=== PATIENT | female | born 1950 | race Caucasian/White ===

== ENCOUNTER 2020-08-18 13:13 | Outpatient (REF) | payer MEDICARE, OTHER, SELFPAY ==
[2020-08-18 15:30] LABS: Alanine Aminotransferase 17 U/L (0-31); Albumin Level 4.3 g/dL (3.5-5.0); Alkaline Phosphatase 61 U/L (39-117); Anion Gap 15 (12-20); Aspartate Amino Transferase 18 U/L (5-31); Bilirubin Total 1.4 mg/dL (0.0-1.0); Blood Urea Nitrogen 21 mg/dL (9-16); C Reactive Protein 0.55 mg/dL (< or = 0.50); Calcium 9.7 mg/dL (8.4-10.2); Carbon Dioxide 24 mmol/L (22-29); Chloride 107 mmol/L (96-108); Estimated Glomerular Filt Rate > 60; Glucose Random 104 mg/dL (60-115); Potassium 4.7 mmol/L (3.3-5.1); Sodium 141 mmol/L (135-145); Total Protein 6.9 g/dL (6.5-8.0)
[2020-08-18 16:09] LABS: Erythrocyte Sedimentation Rate 14 MM/HR (0-20)
== END 2020-08-18 13:14 | disposition home or self-care (01) ==
LOC: HO.LAB 13:13
PROVIDERS: PCP Physician Assistant; Visit Provider Student in an Organized Health Care Education/Training Program
DX: M54.5 Low back pain (principal); M25.50 Pain in unspecified joint; Z79.899 Other long term (current) drug therapy; G89.29 Other chronic pain
CPT/HCPCS: 36415; 80053; 85652; 86140; 99212

== ENCOUNTER 2025-01-11 14:47 | Outpatient (AMB) | payer MEDICARE, OTHER, SELFPAY ==
--- NOTE | 2025-01-11 14:59 | MHC.OFFVIS ---
Intake Visit Reasons: PD Allergies dogs Allergy (Intermediate, Uncoded 08/18/20 13:27) Sneezing grass Allergy (Intermediate, Uncoded 08/18/20 13:27) Sneezing Medication List - Last Reconciled 01/11/25 by Niall Xie MD acetaminophen ER 1,300 mg PO Q12H atenolol 50 mg PO BID biotin 5 mg PO .twice a day carbidopa-levodopa 25-100 mg tabs PO famotidine 20 mg PO BEDTIME fosfomycin tromethamine 1 packet PO QWEEK ketoconazole 2% 1 appl topical DAILY PRN lisinopril 10 mg PO DAILY mometasone 0.1% 1 appl topical DAILY PRN nystatin 1 appl topical DAILY PRN oxybutynin chloride 5 mg PO BID pantoprazole 40 mg PO DAILY rivaroxaban (Xarelto) 20 mg PO DAILY HPI Comments Details: 74 years old woman with hypertension and atrial fibrillation who was initially seen for tremor right hand and was diagnosed with Parkinson disease. She was dozing off during daytime and then not able to sleep at night. She could not tolerate two carbidopa/levodopa and was taking one tid. [facility] Medical History (Updated 01/11/25 @ 15:06 by Niall Xie MD) Hypertension Multifactorial gait disorder Low back pain Social History (Updated 08/18/20 @ 13:34 by Matt Fabian LPN) Alcohol intake: never Review of Systems Const Details: Constitutional:?No fever, chills, fatigue, weight loss, or night sweats. HEENT:?No headache, vision changes, hearing loss, nasal congestion, sore throat. Neurological:?No dizziness, syncope, seizures, numbness, tingling, weakness, tremors, memory loss. Psychiatric:?No anxiety, depression, mood swings, sleep disturbance, or hallucinations. Endocrine:?No heat/cold intolerance, polydipsia, polyuria, or hair/skin changes. Hematologic/Lymphatic:?No easy bruising, bleeding, or lymphadenopathy. Integumentary (Skin):?No rash, lesions, itching, or color changes. ? Physical Exam Neuro Other: Mental Status: Alert and oriented to person, place, and time. Normal attention. Normal spontaneous speech, fluency, and comprehension. No obvious issues with mood and memory. Affect is appropriate. Cranial Nerves: CN II: Visual fuentes full to confrontation, visual acuity intact. CN III, IV, : Pupils equal, round, reactive to light and accommodation. Extraocular movements are normal. CN V: Facial sensation is normal. CN VII: Facial movements symmetrical. CN VIII: Hearing intact to bedside conversation is normal. CN IX, X: Palate elevates symmetrically. CN XI: Shoulder shrug and head turn symmetrical. CN XII: Tongue midline without atrophy or fasciculations. Motor: Bulk and tone normal in all extremities. No significant muscle weakness in arms and legs. No drift. Reflexes: Deep tendon reflexes 2+ and symmetric. Plantar response down-going bilaterally. Coordination: Noqcip-tl-mutw and azax-qu-dbmu testing normal. No dysmetria. Gait and Station: No obvious gait abnormality. No ataxia or instability. Extrapyramidal: Full facial expressions and blinking. No rigidity. Movements are appropriate with no tremor or abnormality. Speech: Normal; no dysarthria or tremor. Assessment & Plan Assessment & Plan (1) Parkinson disease: Comment: MRI brain WO at [facility] in Apr 2024: mild diff atrophy, mild MVD. Code(s): G20.A1 - Parkinson's disease without dyskinesia, without mention of fluctuations Category: Medical Qualifiers: Dyskinesia presence: without dyskinesia Fluctuating manifestations: with fluctuating manifestations Qualified Code(s): G20.A2 - Parkinson's disease without dyskinesia, with fluctuations Plan Impression: a: Parkinson disease b: Insomnia Rec: a: Carbidopa/levodopa 25/100 at 7am,11am,3pm b: Expose yourself to bright light in morning hours c: Take scheduled brief afternoon nap Medications: New carbidopa-levodopa 25-100 mg 1 tab PO TID 270 tabs 1RF Coding Level of Care Code Est Pt Level 4 (73776) Diagnoses Parkinson's disease without dyskinesia, with fluctuating manifestations G20.A2 Dyskinesia presence: without dyskinesia Fluctuating manifestations: with fluctuating manifestations
--- OUTSIDE RECORDS SUMMARY | 2025-01-11 15:34 | XMS_ITS | Clinical Summary ---
Author Organization [facility] Address [address] [place], [place] [id number] Phone Care Team Providers Care Wet Finisher Name Role Phone Matthew Yeh MD Primary Care Provider [phone] Allergies No known active allergies Medications aspirin-calcium carbonate 81 mg-300 mg calcium(777 mg) Tab Dose: 81 MG; Form: Take 1 TABLET; Route: PO; Frequency: QD; Directions: Not available; Details: Dispense: Tablet(s); Date: 01/24/2015 01/24/2015 Active atenolol (TENORMIN) 100 MG tablet Dose: Not available; Form: Not available; Route: PO; Frequency: Not available; Directions: Not available; Details: Dispense: Tablet(s); Date: 01/24/2015 01/24/2015 Active biotin 10 mg Tab Dose: 10 MG; Form: Take 1 TABLET; Route: PO; Frequency: QD; Directions: Not available; Details: Dispense: 30 Tablet(s); Date: 01/01/2014 01/01/2014 Active dilTIAZem (CARDIZEM) 120 MG immediate release tablet Dose: Not available; Form: Not available; Route: PO; Frequency: Not available; Directions: As directed; Details: Dispense: Tablet(s); Date: 12/08/2012 12/08/2012 Active GLUC CAMARGO/CHONDRO CAMARGO A/VIT C/MN (GLUCOSAMINE 1500 COMPLEX ORAL) Dose: Not available; Form: Not available; Route: PO; Frequency: Not available; Directions: As directed; Details: Dispense: 30 Tablet(s); Date: 12/08/2012 12/08/2012 Active lisinopril (PRINIVIL,ZESTR IL) 10 MG tablet Dose: 10 MG; Form: Take 1 TABLET; Route: PO; Frequency: QD; Directions: Not available; Details: Dispense: Tablet(s); Date: 08/13/2014 08/13/2014 Active omega-3 fatty acids 1,000 mg Cap Dose: Not available; Form: Not available; Route: PO; Frequency: Not available; Directions: As directed; Details: Not available; Date: 12/08/2012 12/08/2012 Active omeprazole (PRILOSEC) 20 mg TbEC Dose: 20 MG; Form: Take [address]; Route: PO; Frequency: QD; Directions: Not available; Details: Dispense: Tablet(s); Date: 03/27/2013 03/27/2013 Active pantoprazole (PROTONIX) 40 MG tablet Dose: 40 MG; Form: Take [address]; Route: PO; Frequency: QD; Directions: Not available; Details: Dispense: 30 Tablet(s); Date: 01/01/2014 01/01/2014 Active ergocalciferol 400 unit tablet Dose: Not available; Form: Not available; Route: PO; Frequency: Not available; Directions: As directed; Details: Dispense: 30 Tablet(s); Date: 01/01/2014 01/01/2014 Active zolpidem (AMBIEN) 10 mg tablet Dose: 10 MG; Form: Take 1 TABLET; Route: PO; Frequency: QHS; Directions: Not available; Details: Dispense: Tablet(s); Date: 12/08/2012 12/08/2012 Active CHOLECALCIFEROL , VITAMIN D3, (CHOLECALCIFERO L, VIT D3,,BULK,) 1 million unit/gram Liqd liquid Dose: Not available; Form: Not available; Route: PO; Frequency: Not available; Directions: As directed; Details: Dispense: Tablet(s); Date: 12/08/2012 12/08/2012 Active atenolol (TENORMIN) 50 MG tablet Take 50 mg by mouth. 1 02/04/2017 Active oxybutynin (DITROPAN-XL) 5 MG 24 hr tablet Take 10 mg by mouth daily. 6 03/06/2017 Active vitamins A,C,E-zinc-brisa er (PRESERVISION AREDS) 14,320-226-200 togn-op-zwhg Cap Take 1 capsule by mouth 2 (two) times a day with meals. Active aspirin 81 MG EC tablet Take 81 mg by mouth daily. 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 Not on serenity e 10/19/2022 Are you concerned about learning? Not on file 10/19/2022 No 10/19/2022 No 10/19/2022 Digital Access Answer Date Recorded No 11/19/2022 No 11/19/2022 Reliable internet access at home? Not on file 11/19/2022 Device with a working camera? Not on file Comments Unknown Sex and Gender Information Value Date Recorded Sex Assigned at Not on file Legal Sex Female 5:51 AM EST Gender Identity Not on file Sexual Orientation Not on file Plan of Treatment Health Maintenance Due Date Last Done Comments Adult Td,Tdap Booster 1948 BLOOD PRESSURE 1948 CREATININE LEVEL 1948 LIPID PANEL 1948 POTASSIUM LEVEL 1948 DEPRESSION SCREENING 1960 HEPATITIS C SCREENING 1966 PNEUMOCOCCAL VACCINES (50+ y ears) (1 of 1 - PCV) 1998 ZOSTER VACCINES (1 of 2) 1998 OSTEOPOROSIS SCREENING INITI AL (ONE-TIME) 2013 RSV VACCINE (1 - 1-dose 75+ series) 09/24/2023 COVID-19 VACCINE (2 - 2023-2 5 season) 2024 09/08/2020 SMOKING STATUS SCREENING (On ce After 26 Yrs) Completed 02/02/2019 HEPATITIS A VACCINES Aged Out No long er eligible based on patient's age to complete this topic HIB VACCINES Aged Out No longer eligi ble based on patient's age to complete this topic MENINGOCOCCAL VACCINES (ACWY) Aged Out No longer eligible based on patient's age to complete this topic MENINGOCOCCAL VACCINES (B) Aged Out N o longer eligible based on patient's age to complete this topic Medical Devices Not on file Insurance MEDICARE PART A & B [facility] MEDICARE SUPPLEMENT Care Teams Wet Finisher Relationship Specialty Start Date End Date Matthew Yeh MD PCP - General Internal Medicine 03/18/17 Additional Source Comments The information contained in this document represents components of the legal health record. It is not the complete legal health record.[facility]
--- OUTSIDE RECORDS SUMMARY | 2025-01-11 15:34 | XMS_ITS | Encounter Summary ---
Author Organization [facility] Address [address] [place] [id number] Care Team Providers Care Joint Finisher Name Role Phone Hermelinda Mendoza Primary Care Provider + Encounter Details Date Type Department Care Team (Late Contact Info) Description 11/13/[address] [facility] - Main Lab 299 [facility] [place] [phone] Meredith Ayala PA [address] [address] Overactive bladder; Frequency of micturition Social History Tobacco Use Types Packs/Day Years Used Date Smoking Tobacco: Never Smokeless Tobacco: Never Alcohol Use Standard Drinks/Week Comments Never 0 (1 standard drink = 0.6 oz pur e alcohol) Comments Unknown Sex and Gender Information Value Date Recorded Sex Assigned at Not on file Legal Sex Female 7:49 AM EST Gender Identity Not on file Sexual Orientation Not on file Occupation Industry Job Start Date Job End Date Retired Not on file Not on file Not on file documented as of this encounter Plan of Treatment Upcoming Encounters Date Type Department Care Team (Late Contact Info) Description 04/12/2025 2:00 PM EDT Office Visit Internal Medicine - [place] 175 [facility] 200 [place] [phone] Hermelinda Mendoza PA 175 [facility] 200 [place], [place] [phone] 05/10/2025 1:30 PM EST Ancillary Procedure [facility] [address] [place] [phone] documented as of this encounter Procedures Procedure Name Priority Date/Time Associated Diagnosis Comments BACTERIAL IDENTIFICATION AND SUSCEPTIBILITY, AEROBIC Routine 11/12/2024 12:00 AM EDT Overactive bladder Frequency of micturition documented in this encounter Results * (ABNORMAL) Bacterial identification and susceptibility, aerobic (11/12/2024 12:00 AM EDT) Culture, Bacterial ID and Sensitivity Enterobacter cloacae complex(A) NORA 11/14/2024 10:15 AM EDT [facility] Comment: This is an edited result. Previous organism was Gram negative bacilli on 11/13/2024 at 1135 EDT. Other Urine specimen from urinary conduit / Unknown 11/12/2024 11/13/2024 10:38 AM EDT Narrative Organism Antibiotic Method Susceptibility Enterobacter cloacae complex Amoxicillin/Clavulanate NORA 16 ug/ml: Resistant Enterobacter cloacae complex Cefoxitin NORA >=64 ug/ml: Resistant Enterobacter cloacae complex Ceftazidime NORA <=0.5 ug/ml: Susceptible Enterobacter cloacae complex Cefepime NORA <=0.12 ug/ml: Susceptible Enterobacter cloacae complex Meropenem NORA <=0.25 ug/ml: Susceptible Enterobacter cloacae complex Amikacin NORA <=1 ug/ml: Susceptible Enterobacter cloacae complex Gentamicin NORA <=1 ug/ml: Susceptible Enterobacter cloacae complex Ciprofloxacin NORA <=0.06 ug/ml: Susceptible Enterobacter cloacae complex Levofloxacin NORA <=0.12 ug/ml: Susceptible Enterobacter cloacae complex Nitrofurantoin NORA <=16 ug/ml: Susceptible Enterobacter cloacae complex Trimethoprim/Sulfamethoxazo le NORA <=20 ug/ml: Susceptible us M[facility] MICROBIOLOGY - GENERAL ORDER SEMAJ Final Result [facility] [address] [place] [address], documented in this encounter Visit Diagnoses Diagnosis Overactive bladder Hypertonicity of bladder Frequency of micturition Urinary frequency documented in this encounter Care Teams Joint Finisher Relationship Specialty Start Date End Date Hermelinda Mendoza PA [address] [id number] PCP - General Primary Care 08/14/24 documented as of this encounter
== END 2025-01-11 15:15 | disposition home or self-care (01) ==
PROVIDERS: PCP Physician Assistant; Visit Provider Psychiatry & Neurology Neurology
DX: G20.A2 Parkinson's disease without dyskinesia, with fluctuations (principal)
CPT/HCPCS: 99214

== ENCOUNTER → 2025-01-11 14:47 | Outpatient (BNVA) | payer MEDICARE, OTHER, SELFPAY | PROVIDERS: PCP Physician Assistant; Visit Provider Psychiatry & Neurology Neurology | DX: G20.A2 Parkinson's disease without dyskinesia, with fluctuations (principal) | CPT/HCPCS: 99212 ==

== ENCOUNTER 2025-03-30 11:20 | Outpatient (AMB) | payer MEDICARE, OTHER, SELFPAY ==
--- NOTE | 2025-03-30 11:22 | A.OFFVIS_ITS ---
Vital Signs 03/30/25 11:27 Height 5 ft 10 in Weight 256 lb 2 oz BMI 36.7 BP 128/82 Blood Pressure Location Rt brachial Pulse 68 Pulse Source Pulse Oximeter Pulse Oximetry (%) 96 Oxygen Delivery Method Room Air Intake Visit Reasons: ENP - Parkinson's ok per MD Intake Note: Parkinson's disease Solar Manufacturer'S Representative Required: No Accompanied by: Self / Same As Patient Allergies dogs Allergy (Unknown, Uncoded 03/30/25 11:23) Sneezing grass Allergy (Unknown, Uncoded 03/30/25 11:23) Sneezing Medication List - Last Reconciled 03/30/25 by Penny Kraft MD acetaminophen ER 1,300 mg PO Q12H atenolol 50 mg PO BID carbidopa-levodopa 25-100 mg 1 tab PO TID famotidine 20 mg PO BEDTIME ketoconazole 2% 1 appl topical DAILY PRN lisinopril 10 mg PO DAILY mometasone 0.1% 1 appl topical DAILY PRN nystatin 1 appl topical DAILY PRN pantoprazole 40 mg PO DAILY rivaroxaban (Xarelto) 20 mg PO DAILY HPI Comments Details: 74y/o Right Hnaded female comes for further management for Parkinsons disease. she was diagnosed 2-3 years ago by . After Dr. Michelle residential she was seen by who started on carbidopa/levodopa 25/100 . she noticed mild improvement.she tried to stop for a few days and noticed significant worsening of her gait. she tried taking 4 tabs but could not tolerate Tremors- Right UE at rest. Memory- good Sleep- has trouble falling asleep and staying asleep because of overactive bladder. No snoring No REM behavior Mood- anxiety Speech- mild softer Drooling-None handwriting- smaller Using utensils- she is able to use Personal hygiene- slower Shower- does not have bars - takes sponge bath No falls she uses cane for short distances no hallucinations No dizziness no double vision PFSH Medical History Hypertension Multifactorial gait disorder Low back pain Social History Alcohol intake: never Physical Exam Vital Signs: Last Vital Signs Pulse 68 03/30/25 11:27 BP 128/82 03/30/25 11:27 Pulse Ox 96 03/30/25 11:27 Oxygen Delivery Method Room Air 03/30/25 11:27 BMI result Body Mass Index 36.7 Const General: cooperative, healthy appearing, comfortable and no acute distress Nutritional Appearance: obese Orientation/consciousness: patient oriented x3 Neuro Other: Mild decreased facial expression and blink Right Ue rest tremors - 4-6 hz FFM and foot taps mildly decreased R>L gait - with cane narrow based slow General: patient oriented x3, tone normal, moves all extremities and no focal motor deficits Cranial nerves: Yes Bilaterally intact EOM present, Yes Nystagmus not present, Yes Normal facial strength present, Yes Midline tongue present and Yes Ability to bilaterally elevate shoulders present Cognition (Neuro): normal cognition Deep tendon reflexes (DTR's): Right triceps reflex intensity grade: 1+, Left triceps reflex intensity grade: 1+, Rt Biceps (C5, C6): 1+, Left biceps reflex intensity grade: 1+, Right brachioradialis reflex intensity grade: 1+, Left brachioradialis reflex intensity grade: 1+, Right patellar reflex intensity grade: 1+ and Left patellar reflex intensity grade: 1+ Coordination: iwiwis-zw-qenl test normal Assessment & Plan Assessment & Plan (1) Parkinson disease: Comment: MRI brain WO at [facility] in Apr 2024: mild diff atrophy, mild white matter changes, Code(s): G20.A1 - Parkinson's disease without dyskinesia, without mention of fluctuations Category: Medical Qualifiers: Dyskinesia presence: without dyskinesia Fluctuating manifestations: with fluctuating manifestations Qualified Code(s): G20.A2 - Parkinson's disease without dyskinesia, with fluctuations Plan Discussed about medications - carbidopa/levodopa 25/100 tid -separate from protein.- 8am-2pm-8pm Home PT Declines sleep study Orders: Referrals [facility] Referral G20.A2 - Parkinson's disease without dyskinesia, with fluctuations Coding Level of Care Code New Pt Level 4 (29747) Complex EM visit Add On G2211 Diagnoses Parkinson's disease without dyskinesia, with fluctuating manifestations G20.A2 Dyskinesia presence: without dyskinesia Fluctuating manifestations: with fluctuating manifestations
[2025-03-30 11:27] VITALS: BP 128/82; PULSE 68; O2SAT 96; BMI 36.7
--- OUTSIDE RECORDS SUMMARY | 2025-03-30 14:16 | XMS_ITS | Encounter Summary ---
Author Organization [facility] Address [address] [place] [phone] Care Team Providers Care Medical Scheduler Name Role Phone Hermelinda Mendoza Primary Care Provider + Encounter Details Date Type Department Care Team (Late Contact Info) Description 11/13/2024 Lab Requisition [facility] - Main Lab 299 [facility] [place] [phone] Meredith Ayala PA [address] [address] Overactive bladder; Frequency of micturition Social History [...] PM EDT Office Visit Internal Medicine - [place] 175 [facility] 200 [place] [phone] Hermelinda Mendoza PA 175 [facility] 200 [place], [place] [phone] 05/10/2025 1:30 PM EST Ancillary Procedure [facility] [address] [place] [phone] documented as of this encounter Procedures Procedure Name Priority Date/Time Associated Diagnosis Comments BACTERIAL IDENTIFICATION AND SUSCEPTIBILITY, AEROBIC Routine 11/12/2024 12:00 AM EDT Overactive bladder Frequency of micturition documented in this encounter Results * (ABNORMAL) Bacterial identification and susceptibility, aerobic (11/12/2024 12:00 AM EDT) Culture, Bacterial ID and Sensitivity Enterobacter cloacae complex(A) NORA 11/14/2024 10:15 AM EDT [facility] Comment: This is an [...] MICROBIOLOGY - GENERAL ORDER SEMAJ Final Result [facility] [address] [place] [address], documented in this encounter Visit Diagnoses Diagnosis Overactive bladder Hypertonicity of bladder Frequency of micturition Urinary frequency documented in this encounter Care Teams Medical Scheduler Relationship Specialty Start Date End Date Hermelinda Mendoza PA [address] [address] PCP - General Primary Care 08/14/24 documented as of this encounter
--- OUTSIDE RECORDS SUMMARY | 2025-03-30 14:16 | XMS_ITS | Clinical Summary ---
Author Organization [address] [place] [address] [place] [phone] Phone Care Team Providers Care Launch Steward Name Role Phone Hermelinda Mendoza Primary Care Provider + Allergies No known active allergies Medications cholecalciferol (VITAMIN D-3) 50 mcg (2,000 unit) capsule Take 1 capsule (2,000 Units total) by mouth 1 (one) time each day. 4 Active oxyBUTYnin XL (DITROPAN-XL) 10 mg 24 hr tablet Take 1 tablet (10 mg total) by mouth 1 (one) time each day. 3 Active multivit-min/iro n/folic acid/K (ADULTS MULTIVITAMIN ORAL) Take 1 Tablet by mouth daily. Active fosfomycin (MONUROL) 3 gram packet Take 3 g by mouth 1 (one) time. Active carbidopa-levodo pa CR (SINEMET CR) 25-100 mg per CR tablet Take 1 tablet by mouth 3 (three) times a day. Do not crush, chew, or split. Active pantoprazole (PROTONIX) 40 mg EC tabletIndication s:Gastroesophage al reflux disease without esophagitis TAKE 1 TABLET BY MOUTH EVERY DAY 90 tablet 1 4 Active Additional Information Patient taking differently: 20 mgoral Daily,As directed, Reported on 12/04/2024 lisinopriL (PRINIVIL,ZESTRI L) 10 mg tabletIndication s:Primary hypertension TAKE 1 TABLET BY MOUTH 1 TIME EACH DAY. 90 tablet 3 5 Active Xarelto 20 mg tabletIndication s:Essential (primary) hypertension,Uns pecified atrial fibrillation ([facility] V24, [facility] V28) TAKE 1 TABLET BY MOUTH EVERY DAY 90 tablet 3 5 Active atenoloL (TENORMIN) 25 mg tablet TAKE 1 TABLET BY MOUTH 1 TIME EACH DAY. 90 tablet 3 5 Active Active Problems Problem Noted Date Diagnosed Date Mixed hyperlipidemia 05/07/2024 Assessment & Plan (05/07/2024 1:36 PM EST): Patient's previous LDL was 103. Would like for her to go on some medication like a statin or cholesterol absorption inhibitor. However patient vehemently declines this at the appointment today. Did discuss with her the importance of adhering to a healthy cardiac diet. This includes limiting fat, processed foods, eating plenty of vegetables. OAB (overactive bladder) 04/01/2024 Overview (04/01/2024): urologist Dr. Thorne Morbid obesity with BMI of 4 0.0-44.9, adult ([facility] V24, [facility] V28) 04/01/2024 Bullous pemphigoid ([facility] V28) 10/07/2022 Overview (04/01/2024): f/u derm Dr. Ivey at [facility] PVC (premature ventricular contraction) 08/08/19 23 Assessment & Plan (12/04/2024 3:18 PM EDT): Patient reports occasional/intermittent palpitations. These are random, brief, and infrequent. They are chronic and have not worsened. Continue with the atenolol. Rash 02/19/2022 Atrial fibrillation ([facility] V24, [facility] V28) 0 07/18/2021 Overview (04/01/2024): - Diagnosed during an episode of esophagitis or gastritis when she was hospitalized at [facility] in June 2021 - Initially treated with rate control and eventually she underwent an outpatient DIANNE cardioversion in July 2021 - Was back in A. fib on August 31, 2021 when she came for follow-up in the office with heart rate of 119 bpm - She was initiated on amiodarone for suppression and ultimately underwent elective atrial fibrillation ablation on 01/22/[address] Ordonez - On Xarelto for CVA prophylaxis and off of amiodarone post ablation - Is on atenolol for rate control, she has previously not been tolerant of metoprolol in the past - Holter monitor post ablation most recently on 08/24/2022 for 48 hours showed sinus rhythm, rare APCs with a few atrial pairs and one 4 beat atrial run, frequent PVCs with occasional ventricular bigeminy and trigeminy, rare couplets, and 2 triplets-representing only 2.3% of all beats however, no pauses, no symptoms Last Assessment & Plan: Was largely asymptomatic with her atrial fibrillation as long as she was rate controlled and therefore, I explained that it is very difficult to predict when and if someone will go back into an atrial arrhythmia and if they are asymptomatic, it is hard to say when they exactly went into it making stroke risk still viable; at this point, I feel as though her long-term stroke risk in the setting of paroxysmal atrial fibrillation (with [id number] score of 3) outweighs her potential bleeding risk given that she has not had major bleeding complications with Xarelto yet-this calculation may change should she develop any bleeding complications however but we will cautiously continue Xarelto 20 mg at bedtime for now, continue atenolol 25 mg daily for rate control and blood pressure control; there are no cardiovascular contraindications to any sort of urologic procedure and Xarelto may be held 48 to 72 hours prior to the procedure and resumed as soon as safely possible per surgeon Assessment & Plan (12/04/2024 3:17 PM EDT): Patient is still largely asymptomatic with A-fib. Very difficult to predict when she will go back into atrial arrhythmia especially if they are asymptomatic. She does have an elevated CHADS2 Vascor of 3. Though she does ambulate with a cane and has some tremors at baseline, she is very deliberate in the way that she moves and has not had any falls. She has not developed any new bleeding complications. She should continue the Xarelto for the CVA prophylaxis, and the atenolol 25 mg daily for rate control and blood pressure control. Assessment & Plan (05/07/2024 1:36 PM EST): Patient is in sinus rhythm at the appointment today. Continues to take Xarelto for CVA prophylaxis. Patient is also on beta-joe. Patient has not had any issues with falls or abnormal bleeding. Patient should remain anticoagulated based on CHADS2 Vascor. Patient briefly discussed discontinuing the Xarelto, however will wait until next appointment/follow-up in 6 months to discuss this. 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 Lumbar pain 02/11/2019 Allergic rhinitis 12/02/2017 Alopecia 12/02/2017 GERD (gastroesophageal reflux disease) 8 Insomnia 12/02/2017 HTN (hypertension) 12/02/2017 Overview (04/01/2024): Last Assessment & Plan: Well-controlled on current regimen of atenolol 25 mg daily, lisinopril 10 mg daily, continue Assessment & Plan (12/04/2024 3:18 PM EDT): Well-controlled with regimen of atenolol 25 mg daily and lisinopril 10 mg daily. Continue current medical regiment. Assessment & Plan (05/07/2024 1:36 PM EST): Patient is blood pressure well-controlled. I have asked her to take blood pressure measurements at home report to the office if she gets values consistently outside of normal limit. Did discuss with her that her new medication carbidopa/levodopa that was prescribed to her by her neurologist can cause hypotension or orthostatic hypotension. Patient states she understands. Urinary incontinence 12/02/2017 Diverticulosis of colon 11/13/2016 Mitral valve prolapse syndrome 11/13/2016 Overview (04/01/2024): - Incidentally diagnosed on DIANNE performed to rule out left atrial appendage thrombus on 08/04/2021-was noted to have a low normal ejection fraction of 50 to 55%, mildly dilated RV with mild hypokinesis, severe left atrial enlargement, no left atrial appendage thrombus, myxomatous mitral valve leaflet changes with moderate annular calcification and calcification of the chordal structures with pronounced P2 and P1 prolapse with lesser A2 prolapse with mild mitral regurgitation with an effective regurgitant orifice of around 0.14 cm by 3D planimetry and 0.19 cm by Pisa Last Assessment & Plan: Does not sound like she has more than mild regurgitation on exam, euvolemic, will repeat a surveillance TTE in another 2 to 3 years or with change in exam or clinical status Assessment & Plan (12/04/2024 3:17 PM EDT): Sounds good on exam. Going to update an echocardiogram to be done just prior to her follow-up appointment in 6 months. Assessment & Plan (05/07/2024 1:36 PM EST): Can obtain repeat echocardiogram for surveillance in 1 to 2 years. Parkinson's disease (CMS/HCC V24, CMS/HCC V28) Resolved Problems Problem Noted Date Diagnosed Date Resolved Date Weakness 02/11/2019 05/12/2024 Encounters Date Type Department Care Team Description 01/04/2025 3:00 PM EDT Office Visit Internal Medicine - [address] [place] [address] Hermelinda Mendoza PA Primary hypertension (Primary Dx); Paroxysmal atrial fibrillation (CMS/HCC V24, CMS/HCC V28); OAB (overactive bladder); Obesity (BMI 30.0-34.9); Parkinson's disease, unspecified whether dyskinesia present, unspecified whether manifestations fluctuate (CMS/HCC V24, CMS/HCC V28) 01/01/2025 Telephone Internal Medicine - [place] [address] [facility] [address] [place] [address] Hermelinda Mendoza PA from Last 3 Months Immunizations Immunization Administration Dates Next Due Influenza trivalent, with pr eservative (Fluzone; Afluria) 6mo and older 06/01/2006 Influenza, Unspecified 02/26/2020 Surgical History Surgery Date Site/Laterality Comments EYE SURGERY COLONOSCOPY ANKLE SURGERY HYSTERECTOMY OTHER SURGICAL HISTORY SKIN SHAVE BIOPSY ABLATION OF DYSRHYTHMIC FOCUS DONE ON AT [facility] 01/22/2022 WITH SR INDICATIONS: ATRIAL ARRHYTHMIAS Medical History Medical History Date Comments A-fib ([facility] V24, [facility] V28) GERD (gastroesophageal reflux disease) Mitral valve prolapse syndrome HTN (hypertension) Parkinson's disease ([facility] V24, [facility] V28) Family History Medical History Relation Name Comments Heart attack Father Heart failure Mother Relation Name Status Comments Father Mother Social History Tobacco Use Types Packs/Day Years Used Date Smoking Tobacco: Never Smokeless Tobacco: Never Tobacco Cessation:Counseling Given: Not Answered Alcohol Use Standard Drinks/Week Comments Never 0 [...] file Not on file Not on file Obstetrics History Para Term AB IAB SAB Ectopic Multiple Livin g Live Births 0 0 0 0 0 0 0 0 Last Filed Vital Signs Vital Sign Reading Time Taken Comments Blood Pressure 118/75 01/04/2025 2:32 PM EDT Pulse 85 01/04/2025 2:28 PM EDT Temperature 36.4 C (97.5 F) 01/04/2025 2:28 PM EDT Respiratory Rate - - Oxygen Saturation 97% 01/04/2025 2:28 PM EDT Inhaled Oxygen Concentration - - Weight 117 kg (257 lb) 01/04/2025 2:28 PM EDT Height 177.8 cm (5' 10 ) 01/04/2025 2:28 PM EDT Body Mass Index 36.88 01/04/2025 2:28 PM EDT Plan of Treatment Upcoming Encounters Date Type Department Care Team (Late st Contact Info) Description 04/12/2025 2:00 PM EDT Office Visit Internal Medicine - [place] [address] [facility] [address] [place] [phone] Hermelinda Mendoza PA [address] [facility] [address] [place] [address] 05/10/2025 1:30 PM EST Ancillary Procedure [facility] [address] [facility] [address] [place] [address] Health Maintenance Due Date Last Done Comments DTaP,Tdap,and Td Vaccines (1 - Tdap) 09/24/1967 Zoster Vaccines (1 of 2) 1998 Falls Risk Assessment 06/02/2022 Hepatitis C Screening 06/02/2022 Osteoporosis Screening (Bone Density Screening) 06/02/2022 Social Influencers of Health Screening 06/02/2022 Medicare Annual Wellness Visit 08/24/2023 08/23/2022 RSV Immunization Adult Patients (1 - 1-dose 75+ series) 09/24/2023 Depression Screening 06/24/2024 Hypertension/CHF/CAD Annual BMP Blood Test 10/28/2024 10/29/2023, 10/29/2023 COVID-19 Vaccine ( - season) 2025 05/16/2021, 09/30/2020, 09/08/2020 Influenza Vaccine (#1) 2025 , 04/01/2023, 04/06/2022, Additional history exists Cholesterol Screening (Lipid Panel) 10/28/2028 10/29/2023, 10/29/2023 Colorectal Cancer Screening: Colonoscopy Discontinued 10/08/2013 Pneumococcal Vaccine: 50+ Years Completed 04/03/2024 HIB Vaccines Aged Out No longer eligi ble based on patient's age to complete this topic HPV Vaccines Aged Out No longer eligi ble based on patient's age to complete this topic Hepatitis A Vaccines Aged Out No long er eligible based on patient's age to complete this topic Hepatitis B Vaccines Aged Out No long er eligible based on patient's age to complete this topic IPV Vaccines Aged Out No longer eligi ble based on patient's age to complete this topic MMR Vaccines Aged Out No longer eligi ble based on patient's age to complete this topic Meningococcal ACWY Vaccine Aged Out N o longer eligible based on patient's age to complete this topic Meningococcal B Vaccine Aged Out No l onger eligible based on patient's age to complete this topic RSV Immunization Patients Under 20 months Aged Out No longer eligible based on patient's age to complete this topic Varicella Vaccines Aged Out No longer eligible based on patient's age to complete this topic Procedures Procedure Name Priority Date/Time Associated Diagnosis Comments ANNUAL BMP BLOOD TEST Routine 10/29/2023 LIPID PANEL Routine 10/29/2023 EXTERNAL COLONOSCOPY REPORT Routine 10/08/2013 2:13 PM EDT from Last 3 Months or Most Recently Relevant to Health Maintenance Results * Annual BMP Blood Test (10/29/2023) Annual BMP Blood Test abstracted Historical Provider MD HEALTH MAINTENANCE Final Result * (ABNORMAL) Lipid panel (10/29/2023) LDL/HDL Ratio 3 0 - 4 Triglycerides 88 0 - 150 mg/dL Cholesterol 198 0 - 200 mg/dL HDL 76 >=40 mg/dL LDL Cholesterol 105(A) 0 - 100 mg/dL Blood Venous blood specimen / Unknown Historical Provider LAB BLOOD ORDERABLES Nadine l Result * External Colonoscopy Report (10/08/2013 2:13 PM EDT) Anatomical Region Laterality Modality Endoscopy [facility] Provider GI~PROCEDURE ORDERABLES F inal Result from Last 3 Months or Most Recently Relevant to Health Maintenance Insurance MEDICARE [facility] Care Teams Launch Steward Relationship Specialty Start Date End Date Hermelinda Mendoza PA [address] [address] PCP - General Primary Care 08/14/24
--- OUTSIDE RECORDS SUMMARY | 2025-03-30 14:16 | XMS_ITS | Clinical Summary ---
Author Organization [facility] Address [address] [place], [place] [phone] Phone Care Team Providers Care Inclusion Teacher Name Role Phone Matthew Yeh MD Primary Care Provider [phone] Allergies No known active allergies Medications aspirin-calcium [...] Active vitamins A,C,E-zinc-brisa er (PRESERVISION AREDS) [id number] eafm-ae-gbun Cap Take 1 capsule by mouth 2 [...] HEPATITIS C SCREENING 1966 PNEUMOCOCCAL VACCINES (50+ years) (1 of 1 - PCV) 1998 ZOSTER VACCINES (1 of 2) 1998 OSTEOPOROSIS SCREENING INITIAL (ONE-TIME) 2013 RSV VACCINE (1 - 1-dose 75+ series) 09/24/2023 COVID-19 VACCINE (2 - 2023- season) 2024 09/08/2020 INFLUENZA VACCINE (#1) 2025 9, 04/04/2016, 02/28/2016, Additional history exists SMOKING STATUS SCREENING (Once After 26 Yrs) Completed 02/02/2019 HEPATITIS A [...] file Insurance MEDICARE PART A & B [facility] MEDICARE SUPPLEMENT Care Teams Inclusion Teacher Relationship Specialty Start Date End Date Matthew Yeh MD PCP - General Internal Medicine 03/18/17 Additional Source Comments The information contained in this document represents components of the legal health record. It is not the complete legal health record.[facility]
== END 2025-03-30 12:17 | disposition home or self-care (01) ==
LOC: HO.HSMS 11:21
PROVIDERS: PCP Physician Assistant; Visit Provider Psychiatry & Neurology Neurology
DX: G20.A2 Parkinson's disease without dyskinesia, with fluctuations (principal)
CPT/HCPCS: 99204; G2211

== ENCOUNTER → 2025-03-30 11:20 | Outpatient (BNVA) | payer MEDICARE, OTHER, SELFPAY | PROVIDERS: PCP Physician Assistant; Visit Provider Psychiatry & Neurology Neurology | DX: G20.A2 Parkinson's disease without dyskinesia, with fluctuations (principal) | CPT/HCPCS: 99202 ==